=== PATIENT | male | born 1955 | race Caucasian/White ===

== ENCOUNTER 2017-05-18 16:52 | Emergency (ER) | payer OTHER ==
[~2017-05-18] VITALS: Ht 170.2 cm; Wt 114.1 kg
[~2017-05-18 16:52] MED LIST: ASPIR-TRIN325 M1 PO; ATENOLOL100 MG PO; FAMOTIDINE20 M1 PO; FENOFIBRATE54 M1 NG; NIASPAN,SLO-N1000 MG PO; ZESTRIL,PRINIVI40 MG PO
[2017-05-18] MEDS ORDERED: FLEXERIL10 MG PO (19:52)
[2017-05-18] MEDS ORDERED: PREDNISONE10 M1 PO (19:52)
[2017-05-18 20:11] VITALS: BP 126/73
== END 2017-05-18 20:33 | disposition home or self-care (01) ==
LOC: EME 16:52
DX: M51.26 Other intervertebral disc displacement, lumbar region (principal); M85.88 Other specified disorders of bone density and structure, other site; Z98.1 Arthrodesis status; Z79.82 Long term (current) use of aspirin; Z90.49 Acquired absence of other specified parts of digestive tract; Z88.0 Allergy status to penicillin
CPT/HCPCS: 72131; 99281; 99284; J1885

== ENCOUNTER 2017-06-23 00:33 | Emergency (ER) | payer OTHER ==
[~2017-06-23] VITALS: Ht 170.2 cm; Wt 114.4 kg
[~2017-06-23 00:33] MED LIST changes: +FLEXERIL10 MG PO; +PREDNISONE10 M1 PO
[2017-06-23 00:53] LABS: HEMATOCRIT 37.5 % (38.0-50.0); HEMOGLOBIN 13.3 G/DL (12.5-16.6); MCHC 35.5 G/DL (30.0-36.0); MCV 90.1 FL (86-99); PLATELET COUNT 230 K/uL (156-360); RBC DIS.WIDTH-CV 12.1 % (11.8-14.6); RBC DIS.WIDTH-SD 40.2 % (39-53); RED BLOOD COUNT 4.16 M/uL (4.00-5.50); WHITE BLOOD COUNT 7.8 K/uL (4.1-10.2)
[2017-06-23 01:15] LABS: CHLORIDE 108 mEq/L (99-109); POTASSIUM 3.9 mEq/L (3.7-5.4); SODIUM 141 mEq/L (136-147)
[2017-06-23 01:16] LABS: GLUCOSE 107 mg/dL (70-99)
[2017-06-23 01:20] LABS: GFR ESTIMATE (CALCULATED) > 59 mL/min/ (58.99-99999)
[2017-06-23 01:21] LABS: UREA NITROGEN (BUN) 21 mg/dL (9-23)
[2017-06-23 01:28] LABS: TROP-I INTERPRETATION NEGATIVE; TROPONIN-I < 0.01 ng/mL (0.0-0.30)
[2017-06-23 02:14] VITALS: BP 157/84
== END 2017-06-23 02:14 | disposition home or self-care (01) ==
LOC: EME 00:33
DX: R07.9 Chest pain, unspecified (principal); R20.2 Paresthesia of skin; I10 Essential (primary) hypertension; Z79.82 Long term (current) use of aspirin
CPT/HCPCS: 71046; 80048; 84484; 85027; 93005; 99281; 99284